=== PATIENT | male | born 1950 | race Caucasian/White ===

== ENCOUNTER 2021-04-24 17:40 | Inpatient (IN) | payer OTHER ==
[~2021-04-24] VITALS: Ht 177.8 cm; Wt 72.6 kg
[2021-04-24] MEDS ORDERED: FORTAMET1000 MG (18:48)
[2021-04-24] MEDS ORDERED: LISINOPRIL2.5 MG (18:50)
[2021-04-24] MEDS ORDERED: ATORVASTATIN CA40 MG (18:50)
[2021-05-01] MEDS ORDERED: SYNJARDY XR 251 EACH (11:06)
[2021-05-01] MEDS ORDERED: GABAPENTIN100 M2 (11:07)
== END 2021-05-14 14:18 | disposition home or self-care (01) | DRG 638 ==
LOC: ER 17:40 → MEDI 04-25 14:54
PROVIDERS: ADMIT Internal Medicine; ATTEND Internal Medicine
PROC: 02HV33Z Insertion of Infusion Device into Superior Vena Cava, Percutaneous Approach (ICD-10-PCS; 2021-04-26)
PROC: 0HDLXZZ Extraction of Left Lower Leg Skin, External Approach (ICD-10-PCS; 2021-04-26)
PROC: 0HBNXZZ Excision of Left Foot Skin, External Approach (ICD-10-PCS; principal; 2021-04-29)
PROC: 0H9LXZX Drainage of Left Lower Leg Skin, External Approach, Diagnostic (ICD-10-PCS; 2021-05-07)
DX: E13.621 Other specified diabetes mellitus with foot ulcer (principal); L97.421 Non-pressure chronic ulcer of left heel and midfoot limited to breakdown of skin; L02.416 Cutaneous abscess of left lower limb; R78.81 Bacteremia; E86.0 Dehydration; E78.5 Hyperlipidemia, unspecified; M71.162 Other infective bursitis, left knee; B95.61 Methicillin susceptible Staphylococcus aureus infection as the cause of diseases classified elsewhere
CPT/HCPCS: 73725

== ENCOUNTER 2023-01-23 09:42 | Emergency (ER) | payer OTHER ==
[~2023-01-23] VITALS: Ht 162.6 cm; Wt 72.6 kg
[~2023-01-23 09:42] MED LIST: ATORVASTATIN CA40 MG; FORTAMET1000 MG; GABAPENTIN100 M2; LISINOPRIL2.5 MG; SYNJARDY XR 251 EACH
== END 2023-01-23 13:02 | disposition home or self-care (01) ==
LOC: ER 09:42
DX: E11.621 Type 2 diabetes mellitus with foot ulcer (principal); L97.528 Non-pressure chronic ulcer of other part of left foot with other specified severity; Z79.84 Long term (current) use of oral hypoglycemic drugs

== ENCOUNTER 2023-01-26 07:44 | Inpatient (IN) | payer OTHER ==
[~2023-01-26] VITALS: Ht 162.6 cm; Wt 72.6 kg
--- NOTE | 2023-01-26 08:02 | NUR ---
PACIENTE ALERTA Y ORIENTDA POR 3 REFIERE [facility] EN [facility].
--- NOTE | 2023-01-26 09:43 | NUR ---
PACIENTE EVALUADO POR DR. DOM COOPER ORDENA TRATAMIENTO, RN NAIDU EDUCA ACERCA DEL TRATAMIENTO ORDENADO Y REFIERE ENTENDER. SE CANALIZA Y COLECTAN MUESTRAS DE LABORATORIO MEDIANTE MEDIDAS ASEPTICAS. SE ADMINISTRAN MEDICAMENTOS TAMIKO ORDEN MEDICA. PTE EN ESPERA DE RESULTADOS DE LABORATORIO
--- NOTE | 2023-01-26 15:26 | NUR ---
SE RECIBE PTE ALERTA Y ORIENTADO X3. EN ANDREW BAJA CON BARANDAS ELEVADAS POR SEGURIDAD. SE OBSERVA CON BUEN PATRON RESPIRATORIO. PEND ADMISION NUEVA
== END 2023-02-01 13:09 | disposition home or self-care (01) | DRG 638 ==
LOC: ER 07:44 → MEDI 15:37
PROVIDERS: ADMIT Internal Medicine; ATTEND Internal Medicine
PROC: BQ3DZZZ Magnetic Resonance Imaging (MRI) of Right Lower Leg (ICD-10-PCS; principal; 2023-01-27)
PROC: BQ3FZZZ Magnetic Resonance Imaging (MRI) of Left Lower Leg (ICD-10-PCS; 2023-01-27)
DX: E11.621 Type 2 diabetes mellitus with foot ulcer (principal); L97.528 Non-pressure chronic ulcer of other part of left foot with other specified severity; M86.172 Other acute osteomyelitis, left ankle and foot; L97.529 Non-pressure chronic ulcer of other part of left foot with unspecified severity; I70.203 Unspecified atherosclerosis of native arteries of extremities, bilateral legs; E11.65 Type 2 diabetes mellitus with hyperglycemia; Z79.4 Long term (current) use of insulin; N17.9 Acute kidney failure, unspecified; B95.2 Enterococcus as the cause of diseases classified elsewhere; I12.9 Hypertensive chronic kidney disease with stage 1 through stage 4 chronic kidney disease, or unspecified chronic kidney disease; N18.9 Chronic kidney disease, unspecified
CPT/HCPCS: 73722

== ENCOUNTER 2024-07-12 12:25 | Inpatient (IN) | payer OTHER ==
[~2024-07-12] VITALS: Ht 162.6 cm; Wt 72.6 kg
[2024-07-12] MEDS ORDERED: CEFTRIAXONE SODIUM 1,000 MG VIAL IV ONE (13:15)
[2024-07-12] MEDS ORDERED: 0.9 % SODIUM CHLORIDE 1,000 ML IV SCH ×2 (13:15→20:00)
[2024-07-12 13:47] LABS: HEMATOCRIT 41.9 % (39.0-48.0); HEMOGLOBIN 14.2 g/dL (13-16.00); MEAN CELL VOLUME 88.3 fL (80.0-100.00); MEAN CORPUSCULAR HEMOGLOBIN 29.9 pg (27.00-32.0); MEAN CORPUSCULAR HGB CONC 33.9 g/dl (32.0-36.0); PLATELET COUNT 286 K/uL (150-450); RED BLOOD COUNT 4.75 M/uL (4.00-6.00); RED CELL DISTRIBUTION WIDTH 13.9 % (11.5-14.5)
[2024-07-12 13:49] LABS: ERYTHROCYTE SEDIMENTATION RATE 105 mm/hr
[2024-07-12 14:37] LABS: CALCIUM 8.6 mg/dL (8.5-10.1); CREATININE SERUM 1.56 mg/dL (0.70-1.30); GFR 43.72; POTASSIUM 5.11 mEq/L (3.5-5.1)
[2024-07-12 14:42] LABS: INR 1.12; PROTHROMBIN TIME 12.1 SECONDS (9.0-11.5)
[2024-07-12] MEDS ORDERED: INSULIN REGULAR, HUMAN 1,000 UNIT/10 ML UNITS IV ONE (14:45)
[2024-07-12] MEDS ORDERED: VANCOMYCIN HCL 1,000 MG VIAL IV SCH (19:50)
[2024-07-12] MEDS ORDERED: GABAPENTIN 300 MG CAPSULE PO SCH (19:53)
[2024-07-12] MEDS ORDERED: INSULIN LISPRO 1,000 UNIT/10 ML UNITS SUBCUTANEO PRN (20:00)
[2024-07-12] MEDS ORDERED: ACETAMINOPHEN 500 MG GEL..CAP PO PRN (20:00)
[2024-07-12] MEDS ORDERED: 0.9 % SODIUM CHLORIDE 1,000 ML IV ONE (20:00)
[2024-07-12] MEDS ORDERED: DEXTROSE 50 % IN WATER 0.5 G/ML DISP.SYRIN IV PRN (20:00)
[2024-07-12] MEDS ORDERED: CEFEPIME HCL 2,000 MG in 0.9 % SODIUM CHLORIDE 100 ML IV SCH (21:00)
[2024-07-13 04:56] VITALS: BP 126/84; O2SAT 98
[2024-07-13 08:19] LABS: CHOL HDL RATIO 6.2 (0-5.0)
[2024-07-13] MEDS ORDERED: LISINOPRIL 2.5 MG TABLET PO SCH (09:00)
[2024-07-13] MEDS ORDERED: ATORVASTATIN CALCIUM 40 MG TABLET PO SCH (09:00)
[2024-07-13] MEDS ORDERED: ENOXAPARIN SODIUM 40 MG/0.4 ML SYRINGE SUBCUTANEO SCH (09:00)
[2024-07-13] MEDS ORDERED: FAMOTIDINE/PF 20 MG in 0.9 % SODIUM CHLORIDE 8 ML IV PUSH SCH (09:00)
[2024-07-13] MEDS ORDERED: GABAPENTIN 100 MG CAPSULE PO SCH (09:00)
[2024-07-13 11:11] VITALS: BP 118/79; O2SAT 96
[2024-07-13 12:43] LABS: URINE APPEARANCE Clear; URINE BILIRRUBIN Negative (NEGATIVE); URINE BLOOD Negative; URINE COLOR Yellow; URINE LEUKOCYTE Negative; URINE NITRATE Negative; URINE PROTEIN 30 (NEGATIVE); URINE UROBILINOGEN 0.2 E.U./dl
[2024-07-13 12:46] LABS: URINE BACTERIA 56.3 uL (0.0-1933); URINE RBC 13.1 uL (0.0-20.8); URINE WBC 10.9 uL (0.0-23.2)
[2024-07-13 13:02] LABS: URINE CAST 0.73 uL (0.0-1.40); URINE GLUCOSE >=1000 MG/DL (NEGATIVE); URINE KETONE 80 (NEGATIVE)
[2024-07-13 13:06] LABS: URINE YEAST FEW /hpf
[2024-07-13] MEDS ORDERED: LACTOBACILLUS ACIDOPHILUS 1 CAP CAP PO SCH (17:00)
[2024-07-13] MEDS ORDERED: CLINDAMYCIN PHOSPHATE 150 MG/ML (900mg) IV SCH (17:00)
[2024-07-13] MEDS ORDERED: INSULIN REGULAR, HUMAN 1,000 UNIT/10 ML UNITS IV ONE (19:15)
[2024-07-13] MEDS ORDERED: INSULIN GLARGINE,HUM.REC.ANLOG 1,000 UNITS/10 ML UNITS SUBCUTANEO ONE ×2 (19:15→19:26)
[2024-07-13] MEDS ORDERED: LINEZOLID IN DEXTROSE 5% 300 ML IV SCH (21:00)
[2024-07-14 00:31] VITALS: BP 127/65; O2SAT 95
[2024-07-14 07:50] LABS: ALBUMIN 2.1 gm/dL (3.4-5.0); BILIRUBIN TOTAL 0.45 mg/dL (0.3-1.2); CALCIUM 8.4 mg/dL (8.5-10.1); CREATININE SERUM 1.04 mg/dL (0.70-1.30); GFR 69.81; GLOBULINA 3.8 G/DL (2.4-3.5); POTASSIUM 4.28 mEq/L (3.5-5.1); TOTAL PROTEIN 5.9 gm/dL (6.4-8.2)
[2024-07-14 08:12] LABS: HEMATOCRIT 38.5 % (39.0-48.0); HEMOGLOBIN 12.8 g/dL (13-16.00); MEAN CELL VOLUME 88.5 fL (80.0-100.00); MEAN CORPUSCULAR HEMOGLOBIN 29.4 pg (27.00-32.0); MEAN CORPUSCULAR HGB CONC 33.2 g/dl (32.0-36.0); PLATELET COUNT 319 K/uL (150-450); RED BLOOD COUNT 4.35 M/uL (4.00-6.00); RED CELL DISTRIBUTION WIDTH 13.7 % (11.5-14.5)
[2024-07-14 08:22] LABS: ERYTHROCYTE SEDIMENTATION RATE 120 mm/hr
[2024-07-14] MEDS ORDERED: CHLORHEXIDINE GLUCONATE 120 ML BOTTLE TOP SCH (09:00)
[2024-07-14 09:03] VITALS: BP 140/78; O2SAT 100
[2024-07-14 15:41] VITALS: BP 130/71; O2SAT 94
[2024-07-14] MEDS ORDERED: INSULIN GLARGINE,HUM.REC.ANLOG 1,000 UNITS/10 ML UNITS SUBCUTANEO SCH (21:00)
[2024-07-14] MEDS ORDERED: INSULIN GLARGINE,HUM.REC.ANLOG 1,000 UNITS/10 ML UNITS SUBCUTANEO ONE (22:19)
[2024-07-15 01:11] VITALS: BP 125/79; O2SAT 96
[2024-07-15] MEDS ORDERED: INSULIN LISPRO 1,000 UNIT/10 ML UNITS SUBCUTANEO SCH (08:00)
[2024-07-15 08:44] VITALS: BP 125/63; O2SAT 96
[2024-07-15] MEDS ORDERED: INSULIN GLARGINE,HUM.REC.ANLOG 1,000 UNITS/10 ML UNITS SUBCUTANEO SCH (09:00)
[2024-07-15 16:34] VITALS: BP 135/76; O2SAT 95
[2024-07-16 00:14] VITALS: BP 103/56; O2SAT 97
[2024-07-16 06:41] LABS: HEMATOCRIT 36.8 % (39.0-48.0); HEMOGLOBIN 12.3 g/dL (13-16.00); MEAN CELL VOLUME 88.7 fL (80.0-100.00); MEAN CORPUSCULAR HEMOGLOBIN 29.5 pg (27.00-32.0); MEAN CORPUSCULAR HGB CONC 33.3 g/dl (32.0-36.0); PLATELET COUNT 331 K/uL (150-450); RED BLOOD COUNT 4.15 M/uL (4.00-6.00); RED CELL DISTRIBUTION WIDTH 13.6 % (11.5-14.5)
[2024-07-16 06:50] LABS: CALCIUM 8.1 mg/dL (8.5-10.1); CREATININE SERUM 0.97 mg/dL (0.70-1.30); GFR 75.66; MAGNESIUM 1.9 mg/dL (1.8-2.4); PHOSPHOROUS 2.6 mg/dL (2.5-4.9); POTASSIUM 4.12 mEq/L (3.5-5.1)
[2024-07-16 06:54] LABS: C-REACTIVE PROTEIN 16.5 MG/DL (0.00-0.29)
[2024-07-16 08:00] VITALS: BP 133/71; O2SAT 95
[2024-07-16 16:00] VITALS: BP 137/64; O2SAT 97
[2024-07-17 00:21] VITALS: BP 137/75; O2SAT 96
[2024-07-17 08:26] VITALS: BP 157/80; O2SAT 96
[2024-07-17] MEDS ORDERED: FLUCONAZOLE 200 MG TABLET PO SCH (09:00)
[2024-07-17 16:00] VITALS: BP 125/60; O2SAT 99
[2024-07-17] MEDS ORDERED: HYDROGEN PEROXIDE 473 ML BOTTLE TOP ONE (20:11)
[2024-07-17] MEDS ORDERED: 0.9 % SODIUM CHLORIDE 1,000 ML IV SCH (21:15)
[2024-07-17] MEDS ORDERED: ONDANSETRON HCL 2 MG/ML VIAL IV PRN (21:15)
[2024-07-17] MEDS ORDERED: KETOROLAC TROMETHAMINE 30 MG VIAL IV PRN (21:15)
[2024-07-18 00:10] VITALS: BP 169/90; O2SAT 92
[2024-07-18] MEDS ORDERED: KETOROLAC TROMETHAMINE 30 MG VIAL ONE (00:10)
[2024-07-18 02:30] VITALS: BP 151/74; O2SAT 99
[2024-07-18 07:36] LABS: HEMATOCRIT 33.7 % (39.0-48.0); HEMOGLOBIN 11.2 g/dL (13-16.00); MEAN CELL VOLUME 88.7 fL (80.0-100.00); MEAN CORPUSCULAR HEMOGLOBIN 29.4 pg (27.00-32.0); MEAN CORPUSCULAR HGB CONC 33.1 g/dl (32.0-36.0); PLATELET COUNT 351 K/uL (150-450); RED CELL DISTRIBUTION WIDTH 13.8 % (11.5-14.5)
[2024-07-18 08:00] VITALS: BP 152/72; O2SAT 99
[2024-07-18] MEDS ORDERED: INSULIN LISPRO 1,000 UNIT/10 ML UNITS SUBCUTANEO SCH (08:00)
[2024-07-18] MEDS ORDERED: INSULIN GLARGINE,HUM.REC.ANLOG 1,000 UNITS/10 ML UNITS SUBCUTANEO SCH (09:00)
[2024-07-18 09:04] LABS: CALCIUM 8.2 mg/dL (8.5-10.1); CREATININE SERUM 1.02 mg/dL (0.70-1.30); GFR 71.39; POTASSIUM 4.02 mEq/L (3.5-5.1)
[2024-07-18 17:00] VITALS: BP 149/72; O2SAT 97
[2024-07-19 00:21] VITALS: BP 143/87; O2SAT 98
[2024-07-19] MEDS ORDERED: INSULIN LISPRO 1,000 UNIT/10 ML UNITS SUBCUTANEO SCH (08:00)
[2024-07-19 09:00] VITALS: BP 126/73; O2SAT 95
[2024-07-19] MEDS ORDERED: INSULIN GLARGINE,HUM.REC.ANLOG 1,000 UNITS/10 ML UNITS SUBCUTANEO SCH (09:00)
[2024-07-19 15:33] VITALS: BP 124/59; O2SAT 97
[2024-07-20 00:20] VITALS: BP 160/80; O2SAT 95
[2024-07-20 05:55] LABS: HEMATOCRIT 36.2 % (39.0-48.0); HEMOGLOBIN 12.4 g/dL (13-16.00); MEAN CELL VOLUME 87.7 fL (80.0-100.00); MEAN CORPUSCULAR HGB CONC 34.2 g/dl (32.0-36.0); PLATELET COUNT 438 K/uL (150-450); RED BLOOD COUNT 4.13 M/uL (4.00-6.00); RED CELL DISTRIBUTION WIDTH 13.8 % (11.5-14.5)
[2024-07-20 06:26] LABS: ALBUMIN 1.9 gm/dL (3.4-5.0); BILIRUBIN TOTAL 0.32 mg/dL (0.3-1.2); CALCIUM 8.6 mg/dL (8.5-10.1); CREATININE SERUM 1.14 mg/dL (0.70-1.30); GFR 62.79; GLOBULINA 4.6 G/DL (2.4-3.5); POTASSIUM 4.32 mEq/L (3.5-5.1); TOTAL PROTEIN 6.5 gm/dL (6.4-8.2)
[2024-07-20 06:28] LABS: C-REACTIVE PROTEIN 10.9 MG/DL (0.00-0.29)
[2024-07-20 06:48] LABS: ERYTHROCYTE SEDIMENTATION RATE 68 mm/hr
[2024-07-20] MEDS ORDERED: INSULIN LISPRO 1,000 UNIT/10 ML UNITS SUBCUTANEO SCH (08:00)
[2024-07-20 17:00] VITALS: BP 103/72; O2SAT 96
[2024-07-20] MEDS ORDERED: CEFEPIME HCL 2,000 MG VIAL IV SCH (17:00)
[2024-07-20] MEDS ORDERED: METRONIDAZOLE/SODIUM CHLORIDE 500 MG/100 ML PIGGYBACK IV SCH (17:00)
[2024-07-21] VITALS: BP 125/69; O2SAT 95
[2024-07-21] MEDS ORDERED: INSULIN LISPRO 1,000 UNIT/10 ML UNITS SUBCUTANEO SCH (08:00)
[2024-07-21] MEDS ORDERED: INSULIN GLARGINE,HUM.REC.ANLOG 1,000 UNITS/10 ML UNITS SUBCUTANEO SCH (09:00)
[2024-07-21 12:13] VITALS: BP 126/60; O2SAT 96
[2024-07-21 16:00] VITALS: BP 140/64; O2SAT 94
[2024-07-22 00:05] VITALS: BP 149/65; O2SAT 96
[2024-07-22 08:00] VITALS: BP 116/72; O2SAT 98
[2024-07-22 16:01] VITALS: BP 109/72; O2SAT 96
[2024-07-23 00:12] VITALS: BP 146/63; O2SAT 97
[2024-07-23] MEDS ORDERED: INSULIN LISPRO 1,000 UNIT/10 ML UNITS SUBCUTANEO PRN (06:30)
[2024-07-23 09:51] VITALS: BP 129/65; O2SAT 100
[2024-07-23 14:41] VITALS: BP 116/64; O2SAT 97
[2024-07-23 16:05] VITALS: BP 118/65; O2SAT 97
[2024-07-23 19:22] LABS: HEMATOCRIT 40.2 % (39.0-48.0); HEMOGLOBIN 13.3 g/dL (13-16.00); MEAN CELL VOLUME 89.1 fL (80.0-100.00); MEAN CORPUSCULAR HEMOGLOBIN 29.4 pg (27.00-32.0); PLATELET COUNT 406 K/uL (150-450); RED BLOOD COUNT 4.51 M/uL (4.00-6.00); RED CELL DISTRIBUTION WIDTH 14.2 % (11.5-14.5)
[2024-07-23 19:42] LABS: BILIRUBIN TOTAL 0.2 mg/dL (0.3-1.2); CALCIUM 8.2 mg/dL (8.5-10.1); CREATININE SERUM 1.37 mg/dL (0.70-1.30); GFR 50.79; GLOBULINA 4.6 G/DL (2.4-3.5); POTASSIUM 4.73 mEq/L (3.5-5.1); TOTAL PROTEIN 6.6 gm/dL (6.4-8.2)
[2024-07-24 00:29] VITALS: BP 102/58; O2SAT 98
[2024-07-24 08:46] VITALS: BP 117/72; O2SAT 96
[2024-07-24 17:30] VITALS: BP 120/68; O2SAT 98
[2024-07-25 00:45] VITALS: BP 148/63; O2SAT 97
[2024-07-25 08:42] VITALS: BP 117/67; O2SAT 96
[2024-07-25 17:39] VITALS: BP 138/79; O2SAT 97
[2024-07-26 01:42] VITALS: BP 93/54; O2SAT 99
[2024-07-26 07:39] LABS: ALBUMIN 2.1 gm/dL (3.4-5.0); BILIRUBIN TOTAL 0.32 mg/dL (0.3-1.2); CALCIUM 8.2 mg/dL (8.5-10.1); CREATININE SERUM 1.06 mg/dL (0.70-1.30); GFR 68.29; GLOBULINA 4.5 G/DL (2.4-3.5); POTASSIUM 4.71 mEq/L (3.5-5.1); TOTAL PROTEIN 6.6 gm/dL (6.4-8.2)
[2024-07-26 09:17] VITALS: BP 107/66; O2SAT 97
[2024-07-26] MEDS ORDERED: AMINO ACIDS 1 EACH TABLET PO SCH (17:00)
[2024-07-26] MEDS ORDERED: CALCIUM CARBONATE/VITAMIN D3 1 TAB TABLET PO SCH (17:00)
[2024-07-26 17:49] VITALS: BP 150/85; O2SAT 95
[2024-07-27 00:47] VITALS: BP 129/72; O2SAT 96
[2024-07-27 08:03] VITALS: BP 130/78; O2SAT 95
[2024-07-27] MEDS ORDERED: GABAPENTIN100 MG PO (16:04)
[2024-07-27] MEDS ORDERED: GABAPENTIN300 MG PO (16:04)
[2024-07-27] MEDS ORDERED: LISINOPRIL2.5 MG PO (16:04)
[2024-07-27] MEDS ORDERED: INSULIN LI100 UNIT/1 SUBCUTANEO (16:04)
[2024-07-27] MEDS ORDERED: Lantus 1000 UNITS/10 SUBCUTANEO (16:04)
[2024-07-27] MEDS ORDERED: INTESTINEX680 M1 PO (16:04)
[2024-07-27] MEDS ORDERED: LIPITOR40 M1 PO (16:04)
[2024-07-27] MEDS ORDERED: CHLORHEXIDINE118 M1 TOP (16:04)
[2024-07-27] MEDS ORDERED: CALCIUM 500-VI1 EAC6 PO (16:04)
[2024-07-27] MEDS ORDERED: PRE PROTEIN1 EACH PO (16:04)
[2024-07-27 16:29] VITALS: BP 118/71; O2SAT 96
[2024-07-27 18:37] VITALS: BP 155/74; O2SAT 97
== END 2024-07-27 18:45 | DRG 256 ==
LOC: ER 12:25 → SURG 22:17 → SEC-K 22:17 → SURG 07-13 01:06 → MEDI 07-23 13:31
PROVIDERS: Emergency Medicine; General Practice; Internal Medicine; Internal Medicine Geriatric Medicine; Surgery; ADMIT Internal Medicine; ATTEND Internal Medicine
PROC: B44HZZZ Ultrasonography of Bilateral Lower Extremity Arteries (ICD-10-PCS; 2024-07-12)
PROC: B54DZZZ Ultrasonography of Bilateral Lower Extremity Veins (ICD-10-PCS; 2024-07-12)
PROC: BL31ZZZ Magnetic Resonance Imaging (MRI) of Lower Extremity Connective Tissue (ICD-10-PCS; 2024-07-13)
PROC: 0Y6T0Z0 Detachment at Right 3rd Toe, Complete, Open Approach (ICD-10-PCS; 2024-07-17)
PROC: 0JBQ0ZZ Excision of Right Foot Subcutaneous Tissue and Fascia, Open Approach (ICD-10-PCS; 2024-07-17)
PROC: 0J9Q0ZZ Drainage of Right Foot Subcutaneous Tissue and Fascia, Open Approach (ICD-10-PCS; 2024-07-17)
PROC: 02HV33Z Insertion of Infusion Device into Superior Vena Cava, Percutaneous Approach (ICD-10-PCS; 2024-07-17)
PROC: 0Y6R0Z0 Detachment at Right 2nd Toe, Complete, Open Approach (ICD-10-PCS; principal; 2024-07-17 18:52)
DX: E11.52 Type 2 diabetes mellitus with diabetic peripheral angiopathy with gangrene (principal); B37.89 Other sites of candidiasis; L98.498 Non-pressure chronic ulcer of skin of other sites with other specified severity; L02.611 Cutaneous abscess of right foot; L03.115 Cellulitis of right lower limb; E87.1 Hypo-osmolality and hyponatremia; N17.9 Acute kidney failure, unspecified; E11.621 Type 2 diabetes mellitus with foot ulcer; E11.65 Type 2 diabetes mellitus with hyperglycemia; E86.0 Dehydration; B95.2 Enterococcus as the cause of diseases classified elsewhere; B96.89 Other specified bacterial agents as the cause of diseases classified elsewhere; B96.1 Klebsiella pneumoniae [K. pneumoniae] as the cause of diseases classified elsewhere; I12.9 Hypertensive chronic kidney disease with stage 1 through stage 4 chronic kidney disease, or unspecified chronic kidney disease; E11.22 Type 2 diabetes mellitus with diabetic chronic kidney disease; N18.30 Chronic kidney disease, stage 3 unspecified; F17.200 Nicotine dependence, unspecified, uncomplicated; Z79.4 Long term (current) use of insulin; Z79.84 Long term (current) use of oral hypoglycemic drugs
CPT/HCPCS: 73221